=== PATIENT | female | born 1970 | race Two or more races ===

== ENCOUNTER → 2017-06-29 | Outpatient (CLI) | payer OTHER ==
--- NOTE | 2017-06-29 22:48 | NM ---
EXAMINATION TYPE: NM hepatobiliary w EF DATE OF EXAM: 06/29/2017 COMPARISON: NONE HISTORY: TECHNIQUE: After the intravenous administration of 5.3 mCi Tc 99m Mebrofenin hepatobiliary scintigrap hy is performed. Immediate images post injection. FINDINGS: There is prompt uptake of the tracer by the liver that has normal size and contour. I see no focal de fect. There is tracer in the gallbladder at 6 minutes and seen in the small bowel at 40 minutes which excludes obstruction of the cystic duct and common bile duct. The poststimulation images show gallbladder ejection fraction of 65% which is normal. CONCLUSION: Normal hepatobiliary scan. Normal gallbladder ejection fraction.
== END | disposition home or self-care (01) ==
LOC: RADNMMAIN 14:52
PROVIDERS: ATTEND Family Medicine
DX: K82.9 Disease of gallbladder, unspecified (principal)
CPT/HCPCS: 78226; A9537

== ENCOUNTER → 2021-02-22 | Outpatient (CLI) | payer BC ==
--- NOTE | 2021-02-23 01:54 | MR ---
EXAMINATION TYPE: MR knee RT wo con DATE OF EXAM: 02/22/2021 COMPARISON: None HISTORY: Right knee pain Images obtained of the knee without contrast. The posterior cruciate ligament is intact. There is previous surgery and reconstruction of the anteri or cruciate ligament which appears intact. There is knee joint effusion. There is also popliteal cyst formation. There is intact patella. There is intrasubstance tear of the posterior horn medial meniscus. The lateral meniscus shows mild increas ed signal within the anterior horn. There is a 2 cm area of increased signal in the subcutaneous chondral lateral tibial condyle on the p osterior aspect. This is consistent with a bone bruise. No fracture line seen. The distal femur is in tact. The collateral ligaments are intact. There is some spurring of the lateral femoral and tibial c ondyles. IMPRESSION: Previous reconstructive surgery. No ligamentous tear. Knee joint effusion. Popliteal cyst. Bone bruise in the posterior aspect of the lateral tibial condyle. Minor osteoarthritis. Intrasubstan ce tears of the menisci as above. No fracture seen.
== END | disposition home or self-care (01) ==
LOC: RADMRIMAIN 16:48
PROVIDERS: ATTEND Orthopaedic Surgery
DX: M71.22 Synovial cyst of popliteal space [Baker], left knee (principal); M25.462 Effusion, left knee

== ENCOUNTER → 2021-04-01 | Outpatient (CLI) | payer BC ==
[2021-04-01 14:28] LABS: Basophils # (A) 0.1 k/uL (0-0.2); Basophils % (A) 1 %; Eosinophils # (A) 0.1 k/uL (0-0.7); Eosinophils % (A) 2 %; HCT 45.3 % (34.0-46.0); HGB 15.3 gm/dL (11.4-16.0); Lymphocytes # (A) 2.3 k/uL (1.0-4.8); Lymphocytes % (A) 29 %; MCH 33.7 pg (25.0-35.0); MCHC 33.7 g/dL (31.0-37.0); MCV 99.8 fL (80.0-100.0); Mean Platelet Volume 7.7; Monocytes # (A) 0.4 k/uL (0-1.0); Monocytes % (A) 5 %; Neutrophils # (A) 5.1 k/uL (1.3-7.7); Neutrophils % (A) 63 %; Platelet Count 376 k/uL (150-450); RBC 4.54 m/uL (3.80-5.40); RDW 13.1 % (11.5-15.5); WBC 8.1 k/uL (3.8-10.6)
[2021-04-01 14:39] LABS: Potassium 4.4 mmol/L (3.5-5.1)
== END | disposition home or self-care (01) ==
LOC: LABPAT 11:25
PROVIDERS: ATTEND Orthopaedic Surgery
DX: Z01.812 Encounter for preprocedural laboratory examination (principal); M23.91 Unspecified internal derangement of right knee
CPT/HCPCS: 36415; 80051; 85025; 93005

== ENCOUNTER 2021-04-06 15:03 | Day surgery (SDC) | payer BC ==
[2021-04-04 12:46] VITALS: BMI 26.2
--- NOTE | 2021-04-05 19:58 | HP ---
HISTORY AND PHYSICAL DATE OF SURGERY: 04/06/2021 Shawn Slaughter is a 51-year-old patient seen with progressive right knee pain. We discussed options for treatment. She elected to proceed with arthroscopy. Consent was obtained. PAST MEDICAL HISTORY: Noncontributory. PAST SURGICAL HISTORY: Right knee arthroscopy with ACL reconstruction. DAILY MEDICATIONS: None. ALLERGIES: FENTANYL, IODINE, PENICILLIN. SOCIAL HISTORY: She denies current tobacco use. PHYSICAL EVALUATION OF THE RIGHT KNEE: Her range of motion is zero to 130. Mild effusion. Tenderness, medial joint line. Positive medial Beatriz's. Ligaments stable. Hip rotation without pain. Distal neurovascular exam is intact. Radiographs of the right knee revealed a previous ACL reconstruction, mild osteoarthritis. Right knee MRI revealed intrasubstance tear medial meniscus along with intact ACL graft. IMPRESSION: Internal derangement of right knee with medial meniscal tear. PLAN: Right knee arthroscopy with partial meniscectomy and debridement. MMODL / IJN: [id number] /
[~2021-04-06 15:03] MED LIST: DEXAMETHASONE SOD PHOSPHATE 4 MG/ML 1 ML VIAL IV ONE; HYDROmorphone 0.5 MG/0.5 ML SYRINGE IVP PRN; LACTATED RINGERS 1,000 ML IV SCH; LIDOCAINE 1% (10MG/ML) FOR IV START INTRADERMA PRN; ONDANSETRON 4 MG/2 ML VIAL IVP ONE
[2021-04-06] MEDS ORDERED: ONDANSETRON 4 MG/2 ML VIAL ONE (15:48)
[2021-04-06] MEDS ORDERED: KETOROLAC 15 MG/ML 1 ML VIAL ONE (17:05)
[2021-04-06] MEDS ORDERED: MIDAZOLAM 2 MG/2 ML VIAL ONE (17:05)
[2021-04-06] MEDS ORDERED: PROPOFOL 10 MG/ML 20 ML VIAL IV ONE (17:05)
[2021-04-06] MEDS ORDERED: SUCCINYLCHOLINE CHLORIDE 100 MG/5 ML SYR IV ONE (17:05)
[2021-04-06] MEDS ORDERED: HYDROmorphone (PF) 1 MG/ML ONE (17:05)
[2021-04-06] MEDS ORDERED: LIDOCAINE 1% INJ 10MG/ML (20 ML MDV) ONE (17:05)
[2021-04-06] MEDS ORDERED: BUPIVACAINE (PF) 0.25% 30 ML VIAL INTRAARTIC ONE (17:31)
[2021-04-06 17:58] VITALS: TEMP 97
--- NOTE | 2021-04-06 17:59 | P.OP ---
Date of Procedure: 04/06/21 Preoperative Diagnosis: Internal derangement right knee Postoperative Diagnosis: 1. Tear lateral meniscus right knee 2. 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 Grade 1/2 chondromalacia patella right knee 4. Reactive synovitis medial, lateral and suprapatellar compartments right knee Procedure(s) Performed: 1. Arthroscopic partial lateral meniscectomy right knee 2. Arthroscopic chondroplasty medial femoral condyle right knee 3. Arthroscopic chondroplasty patella right knee 4. Arthroscopic partial synovectomy medial, lateral and suprapatellar compartments right knee Anesthesia: RANDIA, local Surgeon: Esau Chan Estimated Blood Loss (ml): 7 Pathology: none sent Condition: stable Disposition: PACU Indications for Procedure: 51-year-old patient seen with progressive right knee pain. After having treatment options discussed, she elected to proceed with arthroscopy. Operative Findings: See description of procedure Description of Procedure: Patient was taken to the operative suite. Patient underwent a general anesthetic by the department of anesthesia. Patient was given preoperative antibiotics. The right lower extremity was placed in a well-padded arthroscopic leg hammond. The right leg was prepped and draped in the normal sterile orthopedic fashion. A lateral parapatellar and suprapatellar incision was made. Trochars were inserted. Arthroscopy was initiated. Suprapatellar pouch revealed diffuse thick reactive synovitis. The patellofemoral joint appeared to articulate congruently. There was grade 1/2 chondromalacia of the patella with some osteochondral tears present. The scope was guided into the medial gutter. No loose bodies or plica were identified. The scope was then guided into the medial compartment. A medial parapatellar incision was made. Trocar inserted followed by probe. The medial meniscus was probed and it was found to be stable. There was grade 1/2 chondromalacia changes involving the medial femoral condyle with some osteochondral flap tears present. There was some reactive synovitis anteriorly. I performed a chondroplasty of the medial femoral condyle. I performed a partial synovectomy. The shaver was removed. The residual osteochondral surface appeared stable. There was good decompression of synovitis. Scope and probe were then guided into the intercondylar notch. Cruciates were identified, probed and found to be stable. The scope and probe were then guided into lateral compartment. It was a tear involving the posterior horn lateral meniscus in the area of the root. There were no significant chondromalacia changes involving lateral compartment. There was some thick reactive synovitis anteriorly. I performed a partial lateral meniscectomy. I performed a partial synovectomy. The residual meniscus was st able. There was good decompression of the synovitis. The scope was in guided back into the suprapatellar compartment. I introduced a motorized shaver into the suprapatellar compartment. I debrided some piecemeal fragments of meniscus that I encountered. I performed a chondroplasty of the patella getting down to stable osteochondral tissue. I performed a partial synovectomy decompressing the reactive synovitis. Shaver was removed. The residual osteochondral surface of the patella was stable. There was good decompression of synovitis. I took one more look around the entire knee, no residual debris. Instruments were now removed from the joint. The joint was infiltrated with .25% Marcaine. Steri- Strips were applied to the portal sites. Sterile dressings were applied. The patient was placed into a HARRY hose. No tourniquet was utilized. The patient was awakened, transferred to a bed and taken to recovery stable satisfactory condition.
[2021-04-06 18:24] VITALS: RESP 16
[2021-04-06 18:47] VITALS: BP 143/81; PULSE 71
== END 2021-04-06 19:03 | disposition home or self-care (01) ==
LOC: OR 15:03
PROVIDERS: ATTEND Orthopaedic Surgery
DX: M23.200 Derangement of unspecified lateral meniscus due to old tear or injury, right knee (principal); M22.41 Chondromalacia patellae, right knee; M65.861 Other synovitis and tenosynovitis, right lower leg; Z87.891 Personal history of nicotine dependence; Z88.4 Allergy status to anesthetic agent; Z88.0 Allergy status to penicillin; Z91.048 Other nonmedicinal substance allergy status
CPT/HCPCS: 81025; 29881; J2250; J1100; J0690; J2405; J2001; J1170; J1885; J0330; J2704